=== PATIENT | female | born 1940 | race Caucasian/White ===

== ENCOUNTER → 2016-09-08 | Outpatient (CLI) | payer MEDICARE, BC ==
[~2016-09-08] MED LIST: AMLO10TA57 PO; COLC0.6T44 PO; GLIM4TAB32 PO; HYDR-969 PO; LISI-127 PO; METF-47 PO; MOME17SP7 NS; MULT-806 PO; ROSU20TA11 PO; SITA50TA3 PO
== END ==
LOC: NWCC 09:25
PROVIDERS: ATTEND Internal Medicine
DX: T81.89XA Other complications of procedures, not elsewhere classified, initial encounter (principal); Y83.8 Other surgical procedures as the cause of abnormal reaction of the patient, or of later complication, without mention of misadventure at the time of the procedure; L84 Corns and callosities
CPT/HCPCS: 11055